=== PATIENT | male | born 1990 | race Asian ===

== ENCOUNTER → 2017-06-08 | Outpatient (CLI) | payer OTHER ==
--- NOTE | 2017-06-08 15:57 | KCIC ---
EXAM: Chest one view. HISTORY: +PPD. Known tuberculosis follow-up. COMPARISON: None available. FINDINGS: A frontal view of the chest is obtained. There is an airspace infiltrate in the right upper lobe. There is no pneumothorax or pleural effusion. The heart is not enlarged. IMPRESSION: 1. Right upper lobe pneumonia. This is consistent with active disease in the setting of known tuberculosis. Ongoing follow-up/management is recommended. These findings were called to Meme Olmos by Amaury Nicloas on 06/08/2017 3:53 PM. Electronically signed by: Luis Armando Nicolas MD (06/08/2017 3:54 PM) [id number]
== END | disposition home or self-care (01) ==
LOC: KCIC 14:52
PROVIDERS: ATTEND Family Medicine
DX: J18.9 Pneumonia, unspecified organism (principal); R76.11 Nonspecific reaction to tuberculin skin test without active tuberculosis
CPT/HCPCS: 71010